=== PATIENT | male | born 1995 | race Caucasian/White ===

== ENCOUNTER 2017-04-07 23:06 | Emergency (ER) | payer OTHER ==
[~2017-04-07] VITALS: Ht 177.8 cm; Wt 61.0 kg
[2017-04-07 23:10] VITALS: Ht 177.8 cm; Wt 61.0 kg
[2017-04-07] MEDS ORDERED: hydrOXYzine HCL 25 MG TAB PO STA (23:21)
--- NOTE | 2017-04-07 23:22 | EMERGENCY ROOM VISIT NOTE ---
History Report prepared by Ervin: Tierney Marroquin Under the Supervision of: Dr. Aaron Alvarez M.D. First contact with patient: 23:11 Chief Complaint: MENTAL HEALTH EVALUATION Stated Complaint: ANXIETY History of Present Illness The patient is a 21 year old male who presents to the Emergency Room with complaints of intermittent anxiety that has been going on for a year. He reports that he has had mild to moderate anxiety for the last year and feels as if it has become more severe lately. The patient states that he had one bad panic attack 1 year ago and several minor attacks after. He states that 3 days ago he felt stressed, suicidal, and he was breathing more heavily than usual. He states that he is graduating in April and feels as if his school work is triggering his anxiety more recently. He reports that last night he was unable to relax enough to fall asleep. He states that he felt as if he were having a major anxiety attack today and felt suicidal again but states that he is not feeling suicidal right now. The patient also reports that he did not have a plan to kill himself. He reports that he has been seeing a therapist for the last year and also has gone to [facility]. He also reports that he has had less of an appetite recently. The patient does not take any medications. Source of History: patient Onset: 1 year Position: other (global) Quality: other (anxiety) Timing: intermittent Note: additional symptoms: breathing more heavily than usual, trouble falling asleep, suicidal Review of Systems See HPI for pertinent positives & negatives. A total of 10 systems reviewed and were otherwise negative. Past Medical & Surgical Acute anxiety Family History No pertinent family history stated. Social History Smoking Status: Never Smoker Marital Status: single Current/Historical Medications Scheduled Hydroxyzine Pamoate (Vistaril), 1 CAP PO TID Allergies Coded Allergies: No Known Allergies (Unverified , 04/07/17) Physical Exam Vital Signs Date Time Temp Pulse Resp B/P (MAP) Pulse Ox O2 Delivery O2 Flow Rate FiO2 04/08/17 02:11 37.3 90 18 128/69 99 04/08/17 01:17 128/69 04/07/17 23:10 37.3 90 18 132/83 99 Room Air Physical Exam GENERAL: Patient is a healthy-appearing well-nourished male HEAD: Normocephalic atraumatic EYES: Ocular movements intact pupils equal and react to light OROPHARYNX mucous membranes are moist no exudates present no erythema or edema present NECK: Supple no nuchal rigidity CHEST: Good equal expansion LUNGS: Clear and equal to auscultation CARDIAC: Normal S1 and S2 ABDOMEN: Soft nontender no guarding BACK: No CVA tenderness EXTREMITIES: No pain upon palpation normal muscle strength in all groups no clubbing cyanosis or edema NEURO: Patient is following commands and answering questions appropriately. Alert and oriented x3 Cranial Nerves 2-12 grossly intact Medical Decision & Procedures Laboratory Results 04/07/17 23:35 Red Blood Count 5.35, Mean Corpuscular Volume 84.3, Mean Corpuscular Hemoglobin 28.8, Mean Corpuscular Hemoglobin Concent 34.1, Mean Platelet Volume 9.1, Neutrophils (%) (Auto) 51.0, Lymphocytes (%) (Auto) 39.9, Monocytes (%) (Auto) 8.0, Eosinophils (%) (Auto) 1.1, Basophils (%) (Auto) 0.0, Neutrophils # (Auto) 3.27, Lymphocytes # (Auto) 2.56, Monocytes # (Auto) 0.51, Eosinophils # (Auto) 0.07, Basophils # (Auto) 0.00 04/07/17 23:35 Test 04/07/17 23:20 04/07/17 23:35 04/07/17 23:44 Urine Color YELLOW Urine Appearance TURBID (CLEAR) Urine pH 8.5 (4.5-7.5) Urine Specific [place] 1.020 (1.000-1.030) Urine Protein NEG (NEG) Urine Glucose (UA) NEG (NEG) Urine Ketones NEG (NEG) Urine Occult Blood NEG (NEG) Urine Nitrite NEG (NEG) Urine Bilirubin NEG (NEG) Urine Urobilinogen NEG (NEG) Urine Leukocyte Esterase NEG (NEG) Urine WBC (Auto) 1-5 /hpf (0-5) Urine RBC (Auto) 0-4 /hpf (0-4) Urine Hyaline Casts (Auto) 0 /lpf (0-5) Urine Epithelial Cells (Auto) 5-10 /lpf (0-5) Urine Bacteria (Auto) NEG (NEG) Urine Opiates Screen NEG (NEG) Urine Methadone, Qualitative NEG (NEG) Urine Barbiturates NEG (NEG) Urine Phencyclidine (PCP) Level NEG (NEG) Ur Amphetamine/Methamphetamine NEG (NEG) MDMA (Ecstasy) Screen NEG (NEG) Urine Benzodiazepines Screen NEG (NEG) Urine Cocaine Metabolite NEG (NEG) Urine Marijuana (THC) NEG (NEG) White Blood Count 6.41 K/uL (4.8-10.8) Red Blood Count 5.35 M/uL (4.7-6.1) Hemoglobin 15.4 g/dL (14.0-18.0) Hematocrit 45.1 % (42-52) Mean Corpuscular Volume 84.3 fL (80-100) Mean Corpuscular Hemoglobin 28.8 pg (25-34) Mean Corpuscular Hemoglobin Concent 34.1 g/dl (32-36) Platelet Count 226 K/uL (130-400) Mean Platelet Volume 9.1 fL (7.4-10.4) Neutrophils (%) (Auto) 51.0 % Lymphocytes (%) (Auto) 39.9 % Monocytes (%) (Auto) 8.0 % Eosinophils (%) (Auto) 1.1 % Basophils (%) (Auto) 0.0 % Neutrophils # (Auto) 3.27 K/uL (1.4-6.5) Lymphocytes # (Auto) 2.56 K/uL (1.2-3.4) Monocytes # (Auto) 0.51 K/uL (0.11-0.59) Eosinophils # (Auto) 0.07 K/uL (0-0.5) Basophils # (Auto) 0.00 K/uL (0-0.2) RDW Standard Deviation 36.9 fL (36.4-46.3) RDW Coefficient of Variation 12.1 % (11.5-14.5) Immature Granulocyte % (Auto) 0.0 % Immature Granulocyte # (Auto) 0.00 K/uL (0.00-0.02) Anion Gap 10.0 mmol/L (3-11) Est Creatinine Clear Calc Drug Dose 91.7 ml/min Estimated GFR () 110.6 Estimated GFR (Non- 95.5 BUN/Creatinine Ratio 13.0 (10-20) Calcium Level 9.3 mg/dl (8.5-10.1) Total Bilirubin 0.3 mg/dl (0.2-1) Direct Bilirubin 0.1 mg/dl (0-0.2) Aspartate Amino Transf (AST/SGOT) 20 U/L (15-37) Alanine Aminotransferase (ALT/SGPT) 33 U/L (12-78) Alkaline Phosphatase 84 U/L (45-117) Total Protein 7.7 gm/dl (6.4-8.2) Albumin 4.2 gm/dl (3.4-5.0) Thyroid Stimulating Hormone (TSH) 3.810 uIu/ml (0.300-4.500) Ethyl Alcohol mg/dL < 3.0 mg/dl (0-3) Bedside Glucose 94 mg/dl (70-99) Labs reviewed by ED physician. Medications Administered Medications (Trade) Dose Ordered Sig/Tonny Route Start Time Stop Time Status Last Admin Dose Admin Hydroxyzine HCl (Vistaril Tab) 25 mg NOW STAT PO 04/07/17 23:21 04/07/17 23:23 DC 04/08/17 00:00 25 MG Hydroxyzine HCl (Vistaril Tab) 25 mg NOW STAT PO 04/08/17 02:19 04/08/17 02:20 DC 04/08/17 02:26 25 MG ED Course 2312: Past medical records reviewed. The patient was evaluated in room A7. A complete history and physical examination was performed. 2321: Ordered Vistaril Tab 25 mg PO. 0219: Ordered Vistaril Tab 25 mg PO. 0220: Upon reexamination the patient is resting. I discussed results and treatment plan with the patient. He verbalizes agreement and understanding. The patient is ready for discharge. Medical Decision This is a 21-year-old male who denies being suicidal or homicidal presents emergency department complaining of anxiety. The patient wishes to speak with a counselor over how anxious he has. He has been following up with her this is been increasing over the past month. He appears calm on examination but is requesting a medication. I did recommend some Vistaril for the patient. The patient was medically cleared by me and will be evaluated by [facility] staff. Blood Pressure Screening: Patient was found to have normal blood pressure on screening and does not require follow up. Medication Reconciliation: I attest that I have personally reviewed the patient' s current medication list Differential diagnosis: Etiologies such as mood disorder, infection, hypoglycemia, electrolyte abnormalities, cardiac sources, intracerebral event, toxicologic, neurologic, as well as others were entertained. [facility] felt that the patient can be safely discharged home for follow-up with his outpatient services. He was given Vistaril. Patient was in agreement with the treatment plan. Impression Primary Impression: Acute anxiety Scribe Attestation The scribe's documentation has been prepared under my direction and personally reviewed by me in its entirety. I confirm that the note above accurately reflects all work, treatment, procedures, and medical decision making performed by me. Departure Information Dispostion Home / Self-Care Prescriptions Hydroxyzine Pamoate (VISTARIL) 50 Mg Cap 1 CAP PO TID for 10 Days, #30 CAP Prov: Aaron Alvarez MD 04/08/17 Referrals [facility] Forms HOME CARE DOCUMENTATION FORM, IMPORTANT VISIT INFORMATION, School Instructions, Work Instructions Patient Instructions Anxiety Body Response, Anxiety Disorder Tx Meds, Anxiety Disorder Tx W Therapy, My [facility] Additional Instructions Follow up with O/P services You have been examined and treated today on an emergency basis only. This is not a substitute for, or an effort to provide, complete comprehensive medical care. It is impossible to recognize and treat all injuries or illnesses in a single emergency department visit. It is therefore important that you follow up closely with [facility]. Call as soon as possible for an appointment. Thank you for your time and consideration. I look forward to speaking with you again soon. Please don't hesitate to call us if you have any questions.
[2017-04-07 23:53] LABS: URINE APPEARANCE TURBID (CLEAR); URINE BILIRUBIN NEG (NEG); URINE COLOR YELLOW; URINE NITRITE NEG (NEG); URINE PH 8.5 (4.5-7.5); UROBILINOGEN NEG (NEG)
[2017-04-07 23:55] LABS: COMPLETE YES; EOS % 1.1 %; HEMATOCRIT 45.1 % (42-52); LYMPH % 39.9 %; LYMPH ABS # 2.56 K/uL (1.2-3.4); MEAN CELL VOLUME 84.3 fL (80-100); MEAN CORPUSCULAR HEMOGLOBIN 28.8 pg (25-34); MEAN CORPUSCULAR HGB CONC 34.1 g/dl (32-36); MEAN PLATELET VOLUME 9.1 fL (7.4-10.4); PLATELET COUNT 226 K/uL (130-400); RED BLOOD COUNT 5.35 M/uL (4.7-6.1); WHITE BLOOD COUNT 6.41 K/uL (4.8-10.8)
[2017-04-07 23:57] LABS: MANUAL MICROSCOPIC REQUIRED? NO; REVIEW REQ? NO
[2017-04-08 00:08] LABS: BENZODIAZEPINE, URINE NEG (NEG); COCAINE,URINE NEG (NEG); PHENCYCLIDINE, URINE NEG (NEG)
[2017-04-08 00:16] LABS: CALCIUM 9.3 mg/dl (8.5-10.1); CREATININE 1.1 mg/dl (0.60-1.40); POTASSIUM 3.5 mmol/L (3.5-5.1)
[2017-04-08 00:27] LABS: THYROID STIMULATING HORMONE 3.81 uIu/ml (0.300-4.500)
[2017-04-08] MEDS ORDERED: HYDR50CA2 PO (02:04)
[2017-04-08 02:11] VITALS: BP 128/69; PULSE 90; TEMP 37.3; O2SAT 99
[2017-04-08] MEDS ORDERED: hydrOXYzine HCL 25 MG TAB PO STA (02:19)
== END 2017-04-08 02:12 | disposition home or self-care (01) ==
LOC: EDBD 23:06 → C.EDA 23:07
DX: F41.9 Anxiety disorder, unspecified (principal)